=== PATIENT | female | born 1990 | race American Indian/Alaskan Native ===

== ENCOUNTER 2018-12-03 01:08 | Emergency (ER) | payer BC, OTHER ==
[2018-12-03 01:35] VITALS: BMI 17.6
[2018-12-03 02:38] VITALS: PULSE 60
[2018-12-03] MEDS ORDERED: SODIUM CHLORIDE 0.9% 500 ML INFUS.BAG IV ONE (02:45)
[2018-12-03 03:10] LABS: BASO % 0.3 % (0-2.0); EOS % 8.8 % (0-4.5); HEMATOCRIT 35.7 % (32.4-45.2); HEMOGLOBIN 11.5 GM/dL (10.7-15.3); LYMPH % 39.6 % (8-40); MCH 27.2 pg (25.7-33.7); MCHC 32.3 g/dl (32.0-36.0); MEAN CELL VOLUME 84.2 fl (80-96); MEAN PLT VOLUME 9.3 fl (7.5-11.1); MONO % 8.2 % (3.8-10.2); NEUT % 43.1 % (42.8-82.8); PLATELET COUNT 227 K/MM3 (134-434); RBC 4.24 M/mm3 (3.60-5.2); RDW 13.3 % (11.6-15.6); WHITE BLOOD COUNT 5.2 K/mm3 (4.0-10.0)
[2018-12-03 03:15] LABS: PH,URINE 6.5 (5.0-8.0); URINE APPEARANCE CLEAR; URINE BILIRUBIN NEGATIVE (NEGATIVE); URINE COLOR YELLOW; URINE GLUCOSE (UA) NEGATIVE (NEGATIVE); URINE KETONE NEGATIVE (NEGATIVE); URINE LEUK ESTERASE NEGATIVE (NEGATIVE); URINE NITRITE NEGATIVE (NEGATIVE); URINE PROTEIN NEGATIVE (NEGATIVE); URINE UROBILINOGEN 0.2 mg/dL (0.2-1.0)
[2018-12-03 03:31] LABS: ALBUMIN 3.7 g/dl (3.4-5.0); BILIRUBIN,TOTAL 0.4 mg/dL (0.2-1); BLOOD UREA NITROGEN 4.6 mg/dL (7-18); CALCIUM 8.6 mg/dL (8.5-10.1); CREATININE 0.6 mg/dL (0.55-1.3); MAGNESIUM 2.4 mg/dL (1.8-2.4); POTASSIUM 4.1 mmol/L (3.5-5.1); TOT PROT 7.2 g/dl (6.4-8.2)
--- NOTE | 2018-12-03 03:38 | PDOC ---
History of Present Illness - General History Source: Patient Exam Limitations: No Limitations - History of Present Illness Initial Comments: 12/03/18 03:35 Roselia Howard is a 28F with history of chronic constipation, diverticulitis, and anal fissue presenting with abdominal pain radiating down left leg. Was eating dinner today and experienced a cramping abdominal pain soon after. Is now concerned about this cramping pain radiating down left lateral buttock. Has never had this sort of pain before. Denies exercise/lifting, any urinary sx , risk of STI, or rash to affected area. Has extensive history of constipation beginning 3 years ago, including anal fissure that worsens constipation. Has seen multiple GIs, has been recommended fiber diet with Miralax and has been on this for 3 years with no significant alleviation of constipation. 15lb weight loss related to restricted diet, says she gets worse constipation with any meats. Meals mostly carbs and water. Dx diverticulitis 3 weeks ago, says she completed 1 week of Abx and symptoms resolved to baseline. Says colonoscopy 2014 internal hemorrhoids. Denies headache, chest pain, SOB, cough. Has nausea 2/2 constipation but no vomiting. No other PMH. No PSH. No medications taken. No allergies. <Parish Tao - Last Filed: 12/03/18 06:51> <Jd Maciel - Last Filed: 12/03/18 07:03> - General Chief Complaint: Pain, Acute Stated Complaint: ABD PAIN Time Seen by Provider: 12/03/18 01:55 Past History - Past Medical History Anemia: No Asthma: No Cancer: No Cardiac Disorders: No CVA: No COPD: No CHF: No Dementia: No Diabetes: No GI Disorders: Yes (CHRONIC CONSTIPATION) Disorders: No HTN: No Hypercholesterolemia: No Liver Disease: No Seizures: No Thyroid Disease: No - Surgical History Abdominal Surgery: No Appendectomy: No Cardiac Surgery: No Cholecystectomy: No Lung Surgery: No Neurologic Surgery: No Orthopedic Surgery: No - Immunization History Immunization Up to Date: Yes - Suicide/Smoking/Psychosocial Hx Smoking Status: No Smoking History: Never smoked Have you smoked in the past 12 months: No Number of Cigarettes Smoked Daily: 0 Information on smoking cessation initiated: No Hx Alcohol Use: No Drug/Substance Use Hx: No Substance Use Type: None <Parish Tao - Last Filed: 12/03/18 06:51> <Jd Maciel - Last Filed: 12/03/18 07:03> - Past Medical History Allergies/Adverse Reactions: Allergies Allergy/AdvReac Type Severity Reaction Status Date / Time No Known Allergies Allergy Verified 12/03/18 01:33 Home Medications: Ambulatory Orders Sennosides [Senna] 8.6 mg PO PRN 12/03/18 Review of Systems - Review of Systems Able to Perform ROS?: Yes Is the patient limited Guyanese proficient: No Constitutional: Yes: See HPI, Loss of Appetite, Weakness, Unintentional Wgt. Loss. No: Chills, Fever, Weight Stable HEENTM: No: Blurred Vision, Throat Pain, Dental Problems Respiratory: No: Cough, Shortness of Breath, Wheezing Cardiac (ROS): No: Chest Pain, Edema, Palpitations, Syncope, Chest Tightness ABD/GI: Yes: Constipated, Nausea, Rectal Bleeding. No: Diarrhea, Difficulty Swallowing : No: Burning, Dysuria, Discharge, Frequency, Hematuria, Pain Musculoskeletal: Yes: Muscle Pain Integumentary: No: Bruising, Rash Neurological: No: Headache, Numbness, Unsteady Gait <Parish Tao - Last Filed: 12/03/18 06:51> *Physical Exam - Vital Signs Last Vital Signs Temp Pulse Resp BP Pulse Ox 97.9 F 60 16 93/45 L 100 12/03/18 02:37 12/03/18 02:37 12/03/18 02:37 12/03/18 02:37 12/03/18 02:37 - Physical Exam General Appearance: Yes: Appropriately Dressed, Mild Distress, Thin HEENT: positive: Normal Voice, Symmetrical, Pharynx Normal. negative: Scleral Icterus (R), Scleral Icterus (L), Muffled/Hoarse voice, Rhinorrhea, Hearing Decreased Neck: positive: Trachea midline, Supple. negative: Lymphadenopathy (R), Lymphadenopathy (L) Respiratory/Chest: positive: Lungs Clear, Normal Breath Sounds. negative: Chest Tender, Respiratory Distress, Crackles, Rales, Rhonchi Cardiovascular: positive: Regular Rhythm. negative: Edema, Gallop/S3, Gallop/S4 Gastrointestinal/Abdominal: positive: Normal Bowel Sounds, Flat, Soft, Decreased BS, Other (negative ann sign, mcburney point tenderness, nontender to palpation, no CVA tenderness). negative: Organomegaly, Hernia Musculoskeletal: positive: Normal Inspection Extremity: positive: Normal Capillary Refill, Normal Inspection, Normal Range of Motion, Tender (L lateral posterior thigh tender to deep palpation, no outward signs of shingles or injury) Integumentary: positive: Normal Color, Dry, Warm Neurologic: positive: Fully Oriented, Normal Mood/Affect <Parish Tao - Last Filed: 12/03/18 06:51> - Vital Signs Last Vital Signs Temp Pulse Resp BP Pulse Ox 98.5 F 60 20 89/46 L 97 12/03/18 06:34 12/03/18 06:34 12/03/18 06:34 12/03/18 06:34 12/03/18 06:34 <Jd Maciel - Last Filed: 12/03/18 07:03> ED Treatment Course - LABORATORY CBC & Chemistry Diagram: 12/03/18 03:03 12/03/18 03:03 - ADDITIONAL ORDERS Additional order review: Laboratory Results 12/03/18 12/03/18 12/03/18 03:03 02:50 02:50 Sodium 142 Potassium 4.1 Chloride 112 H Carbon Dioxide 25 Anion Gap 5 L BUN 4.6 L Creatinine 0.6 Est GFR (CKD-EPI)AfAm 143.77 Est GFR (CKD-EPI)NonAf 124.04 Random Glucose 101 Calcium 8.6 Magnesium 2.4 Total Bilirubin 0.4 AST 16 ALT 20 Alkaline Phosphatase 54 Total Protein 7.2 Albumin 3.7 Lipase 165 Urine Color Yellow Urine Appearance Clear Urine pH 6.5 Ur Specific [place] 1.002 L Urine Protein Negative Urine Glucose (UA) Negative Urine Ketones Negative Urine Blood Negative Urine Nitrite Negative Urine Bilirubin Negative Urine Urobilinogen 0.2 Ur Leukocyte Esterase Negative Urine HCG, Qual Negative 12/03/18 03:03 RBC 4.24 MCV 84.2 MCHC 32.3 RDW 13.3 MPV 9.3 Neutrophils % 43.1 Lymphocytes % 39.6 Monocytes % 8.2 Eosinophils % 8.8 H Basophils % 0.3 - Medications Given in the ED: ED Medications Discontinued Medications Generic Name Dose Route Start Last Admin Trade Name Freq PRN Reason Stop Dose Admin Sodium Chloride 1,000 ml 12/03/18 02:45 12/03/18 03:00 Normal Saline - IV 07/07/19 02:46 1,000 ml ONCE ONE Administration <Parish Tao - Last Filed: 12/03/18 06:51> - LABORATORY CBC & Chemistry Diagram: 12/03/18 03:03 12/03/18 03:03 - ADDITIONAL ORDERS Additional order review: Laboratory Results 12/03/18 12/03/18 12/03/18 03:03 02:50 02:50 Sodium 142 Potassium 4.1 Chloride 112 H Carbon Dioxide 25 Anion Gap 5 L BUN 4.6 L Creatinine 0.6 Est GFR (CKD-EPI)AfAm 143.77 Est GFR (CKD-EPI)NonAf 124.04 Random Glucose 101 Calcium 8.6 Magnesium 2.4 Total Bilirubin 0.4 AST 16 ALT 20 Alkaline Phosphatase 54 Total Protein 7.2 Albumin 3.7 Lipase 165 Urine Color Yellow Urine Appearance Clear Urine pH 6.5 Ur Specific [place] 1.002 L Urine Protein Negative Urine Glucose (UA) Negative Urine Ketones Negative Urine Blood Negative Urine Nitrite Negative Urine Bilirubin Negative Urine Urobilinogen 0.2 Ur Leukocyte Esterase Negative Urine HCG, Qual Negative 12/03/18 03:03 RBC 4.24 MCV 84.2 MCHC 32.3 RDW 13.3 MPV 9.3 Neutrophils % 43.1 Lymphocytes % 39.6 Monocytes % 8.2 Eosinophils % 8.8 H Basophils % 0.3 - Medications Given in the ED: ED Medications Discontinued Medications Generic Name Dose Route Start Last Admin Trade Name Freq PRN Reason Stop Dose Admin Sodium Chloride 1,000 ml 12/03/18 02:45 12/03/18 03:00 Normal Saline - IV 12/03/18 02:46 1,000 ml ONCE ONE Administration <Jd Maciel - Last Filed: 12/03/18 07:03> Medical Decision Making - Medical Decision Making 12/03/18 03:30 Roselia Howard is a 28F with PMH chronic constipation, diverticulitis, and anal fissure presenting with abdominal pain that radiates to L leg. Given history of constipation and diverticulitis, concern for abd process such as pain from constipation/stool burden, repeat diverticulitis, pancreatitis, cholelithiasis. Musculoskeletal process such as muscle strain vs. electrolyte inbalance also possible. 12/03/18 06:38 CMP, CBC, Lipase all WNL. No signs of UTI or blood on UA. uPreg negative. CT abd shows some mild cystitis, no other abnormalities notable. Plan to discharge home with PMD/GI follow-up. <Parish Tao - Last Filed: 12/03/18 06:51> *DC/Admit/Observation/Transfer - Discharge Dispostion Decision to Admit order: No <Parish Tao - Last Filed: 12/03/18 06:51> <Jd Maciel - Last Filed: 12/03/18 07:03> Diagnosis at time of Disposition: Constipation - Discharge Dispostion Disposition: HOME Condition at time of disposition: Improved - Referrals Referrals: Kendall Hsu MD [Staff Physician] - Eveline Raman MD [Primary Care Provider] - [facility] [place] [Provider Group] - Patient Instructions Printed Discharge Instructions: DI for Constipation Additional Instructions: Today you were evaluated for abdominal pain and left leg pain. We obtained labs from your blood and urine, and found no problems with your electrolyte levels, no signs of liver disease or pancreatitis, and no signs of infection or bleeding in your urine. A test showed that you are not . A CT scan of your abdomen and pelvis did not find any signs of problems in your intestinal tract; there is no evidence of further diverticulitis, diverticulosis , or fistula formation. Your abdominal spasms and leg cramping may most likely due to your persistent constipation and fatigue of the muscles in your belly and leg. As discussed, your diet is low on important nutrients and electrolytes; if you can tolerate it , try drinking some sports drinks such as Gatorade to help with your nutrition and help you keep your sodium and potassium up. Please follow up with a GI doctor for further evaluation. You may need an endoscopy to evaluate for ulcers. Call the number provided to make an appointment. If you have any new, worsening, or recurrent symptoms, such as worsening/ repeated abdominal or leg pain, fever, nausea, vomiting, headaches, worsening rectal bleeding, difficulty standing/walking, or generalized weakness, please return to an emergency room. Please see your doctor or preferred machining technician in the next 2-3 days. - Post Discharge Activity
--- NOTE | 2018-12-03 06:19 | PDOC ---
Attending Attestation - Resident Resident Name: JennieevelinSullyParish - ED Attending Attestation I have performed the following: I have examined & evaluated the patient, The case was reviewed & discussed with the resident, I agree w/resident's findings & plan, Exceptions are as noted - HPI HPI: 12/03/18 06:16 28 F with h/o constipation, diverticulitis, anal fissure, presenting to ED with abdominal cramping. Pt states that the pain started after eating dinner today. She notes that it radiates from the left side of her abdomen down to her L leg. Denies any N/V. Denies F/C. Pt was diagnosed with diverticulitis 3 weeks ago and completed a course of abx. - Physicial Exam PE: 12/03/18 06:18 GENERAL: Awake, alert, and fully oriented, in no acute distress. HEAD: No signs of trauma EYES: PERRLA, EOMI, sclera anicteric, conjunctiva clear ENT: Auricles normal inspection, hearing grossly normal, nares patent, oropharynx clear without exudates. Moist mucosa NECK: Nontender, no stepoffs, Normal ROM, supple, no lymphadenopathy, JVD, or masses LUNGS: Breath sounds equal, clear to auscultation bilaterally. No wheezes, and no crackles HEART: Regular rate and rhythm, normal S1 and S2, no murmurs, rubs or gallops ABDOMEN: Soft, nontender, normoactive bowel sounds. No guarding, no rebound. No masses EXTREMITIES: Normal range of motion, no edema. No clubbing or cyanosis. No cords, erythema, or tenderness NEUROLOGICAL: Cranial nerves II through XII intact. 5/5 strength and sensation in all extremities, Normal speech, normal gait, normal cerebellar function SKIN: Warm, Dry, normal turgor, no rashes or lesions noted. - Medical Decision Making 12/03/18 06:19 28 F with L sided abdominal pain. Benign abdomen on exam, but pt has h/o diverticulitis. - Labs - UA, UPT - CTAP 12/03/18 07:[address] unremarkable Pt reassessed - pain has now resolved, able to tolerate PO I suspect pt has gastritis vs PUD. Pt referred to GI for possible endoscopy. Pt's BP noted to be low on discharge. HOwever, she states she has low BP at baseline. Pt is not tachycardic, does not have any lightheadedness/CP/SOB. Pt is well appearing, with normal vitals. Clinically stable for DC at this time. I discussed the physical exam findings, ancillary test results and final diagnoses with the patient. I answered all of the patient's questions. The patient was satisfied with the care received and felt comfortable with the discharge plan and treatment plan. The patient agrees to follow up with the primary care physician within 24-72 hours.
[2018-12-03 06:34] VITALS: BP 89/46; TEMP 98.5
== END 2018-12-03 07:10 | disposition home or self-care (01) ==
LOC: JER 01:08
PROC: 3E0337Z Introduction of Electrolytic and Water Balance Substance into Peripheral Vein, Percutaneous Approach (ICD-10-PCS; principal; 2018-12-03)
DX: K59.00 Constipation, unspecified (principal)
CPT/HCPCS: 36415; 74177-TC; 80053; 81003; 83690; 83735; 84703; 85025; 87086; 87186; 96360; 99283-25

== ENCOUNTER 2018-12-24 21:29 | Emergency (ER) | payer OTHER | END 2018-12-24 22:53 | disposition home or self-care (01) | LOC: JERFT 21:29 ==

== ENCOUNTER 2019-01-16 11:10 | Day surgery (SDC) | payer OTHER ==
[2019-01-15 13:42] VITALS: BMI 17.6
[2019-01-16 14:08] VITALS: TEMP 98.8
[2019-01-16 15:28] VITALS: BP 102/53; PULSE 74
--- NOTE | 2019-01-17 15:02 | PATH ---
Surgical Pathology Report Patient Name: AYDE RODRÍGUEZ [facility]. Rec. #: [id number] /Age/Gender: 1990 (Age: 28) / F Account: [id number] Location: [facility]-ENDOSCOPY Taken: 01/16/2019 Received: 01/16/2019 Reported: 01/17/2019 Physicians: Meet Hall D.O. Specimen(s) Received A: DUODENUM B: BODY/ ANGULARIS Clinical History Abdominal pain, GERD Postoperative diagnosis: Same Final Diagnosis A. DUODENUM, BIOPSY: DUODENAL MUCOSA WITH MILD ACUTE AND CHRONIC DUODENITIS. B. STOMACH, BODY/ANGULARIS, BIOPSY: GASTRIC BODY MUCOSA WITH MILD CHRONIC GASTRITIS. IMMUNOHISTOCHEMICAL STAIN FOR H. PYLORI IS NEGATIVE. Electronically Signed Nadja Bailey M.D. Gross Description A. Received in formalin, labeled "biopsy duodenum" is a ag, irregular portion of soft tissue measuring 0.5 cm. in greatest dimension. The specimen is submitted in toto in one cassette. B. Received in formalin, labeled "biopsy body/angularis" are 3 ag, irregular portions of soft tissue ranging from 0.2-0.3 cm. in greatest dimension. The specimens are submitted in toto in one cassette. /01/16/2019
== END 2019-01-16 15:00 | disposition home or self-care (01) ==
LOC: JASU-ENDO 11:10
PROVIDERS: ATTEND Internal Medicine Gastroenterology
PROC: 0DB68ZX Excision of Stomach, Via Natural or Artificial Opening Endoscopic, Diagnostic (ICD-10-PCS; principal; 2019-01-16 11:45)
DX: K29.50 Unspecified chronic gastritis without bleeding (principal); R10.13 Epigastric pain; K29.80 Duodenitis without bleeding
CPT/HCPCS: 84703; 88305-TC; 88342-TC

== ENCOUNTER 2021-07-26 19:30 | Emergency (ER) | payer OTHER ==
[2021-07-26] MEDS ORDERED: ASPIRIN 81 MG CHEWABLE TABLETS PO ONE (19:42)
[2021-07-26 19:43] VITALS: BP 110/72; PULSE 106; BMI 22.4
[2021-07-26] MEDS ORDERED: LACTATED RINGERS SOLUTION 1000 ML INFUS.BAG IV ONE (19:43)
[2021-07-26 19:45] VITALS: TEMP 97.9
[2021-07-26] MEDS ORDERED: LORazepam 1 MG TABLET PO ONE (20:10)
[2021-07-26] MEDS ORDERED: ASPIRIN 81 MG CHEWABLE TABLETS ONE (20:12)
[2021-07-26] MEDS ORDERED: LORazepam 1 MG TABLET ONE (20:12)
[2021-07-26 20:24] LABS: BASO % 0.2 % (0-2.0); EOS % 7.3 % (0-4.5); HEMATOCRIT 35.3 % (32.4-45.2); HEMOGLOBIN 11.7 GM/dL (10.7-15.3); LYMPH % 34.4 % (8-40); MCH 27.3 pg (25.7-33.7); MCHC 33.3 g/dl (32.0-36.0); MEAN CELL VOLUME 82.1 fl (80-96); MEAN PLT VOLUME 9.6 fl (7.5-11.1); MONO % 5.3 % (3.8-10.2); NEUT % 52.8 % (42.8-82.8); PLATELET COUNT 241 10^3/uL (134-434); RDW 13.5 % (11.6-15.6); WHITE BLOOD COUNT 8.5 K/mm3 (4.0-10.0)
[2021-07-26 20:32] LABS: INR 1.13 (0.83-1.09)
[2021-07-26 20:38] LABS: BLOOD UREA NITROGEN 6.2 mg/dL (7-18); CALCIUM 8.8 mg/dL (8.5-10.1)
[2021-07-26 20:39] LABS: ALBUMIN 3.7 g/dl (3.4-5.0)
[2021-07-26 20:41] LABS: CREATININE 0.8 mg/dL (0.55-1.3)
[2021-07-26 20:44] LABS: BILIRUBIN,TOTAL 0.2 mg/dL (0.2-1); TOT PROT 7.2 g/dl (6.4-8.2)
== END 2021-07-26 23:06 | disposition home or self-care (01) ==
LOC: JER 19:30
DX: F41.1 Generalized anxiety disorder (principal)
CPT/HCPCS: 36415; 71046-TC-FY; 80053; 82550; 84484; 85025; 85610; 86850; 86900; 86901; 93005; 93010; 99285-25

== ENCOUNTER 2022-06-26 17:59 | Emergency (ER) | payer OTHER ==
[2022-06-26 18:20] VITALS: RESP 18; BMI 21.4
[2022-06-26] MEDS ORDERED: LIDOCAINE 5% TOPICAL PATCH TP ONE (18:56)
[2022-06-26] MEDS ORDERED: IBUPROFEN 600 MG TABLET (FP) PO ONE ×2 (18:56→19:14)
[2022-06-26] MEDS ORDERED: METHOCARBAMOL 500 MG TABLET PO ONE (18:56)
[2022-06-26] MEDS ORDERED: LIDOCAINE 5% TOPICAL PATCH ONE (19:14)
[2022-06-26] MEDS ORDERED: METHOCARBAMOL 500 MG TABLET ONE (19:14)
[2022-06-26 20:03] LABS: EPI CELLS 3 /uL (0-25.1); HYALINE CASTS 0 /uL (0-3.1); PH,URINE 7.5 (5.0-8.0); URINE APPEARANCE CLEAR; URINE BACTERIA 8 /uL (0-1359); URINE BILIRUBIN NEGATIVE (NEGATIVE); URINE COLOR YELLOW; URINE GLUCOSE (UA) NEGATIVE (NEGATIVE); URINE KETONE NEGATIVE (NEGATIVE); URINE LEUK ESTERASE NEGATIVE (NEGATIVE); URINE NITRITE NEGATIVE (NEGATIVE); URINE PROTEIN NEGATIVE (NEGATIVE); URINE RBC 43 /uL (0-23.9); URINE UROBILINOGEN 0.2 mg/dL (0.2-1.0); URINE WBC 1 /uL (0-25.8)
[2022-06-26] MEDS ORDERED: ACETAMINOPHEN 325 MG TABLET (FP) PO ONE (20:07)
[2022-06-26 20:10] LABS: HCG,QUALITATIVE URINE Negative
[2022-06-26 20:14] VITALS: BP 105/56; PULSE 89; TEMP 98
[2022-06-26] MEDS ORDERED: ACETAMINOPHEN 325 MG TABLET (FP) ONE (21:14)
[2022-06-26] MEDS ORDERED: LIDOCAINE PATCH REMOVAL MC SCH (22:00)
== END 2022-06-26 22:28 | disposition home or self-care (01) ==
LOC: JER 17:59
DX: M62.830 Muscle spasm of back (principal); M54.50 Low back pain, unspecified
CPT/HCPCS: 72100-TC-FY; 81003; 84703; 99284-25